=== PATIENT | male | born 1965 | race Hispanic/Latino ===

== ENCOUNTER → 2024-08-18 | Outpatient (CLI) | payer OTHER ==
--- NOTE | 2024-08-18 22:44 | HMCIMG ---
NM BONE SCAN WHOLE BODY REASON: C61 MALIGNANT NEOPLASM OF PROSTATE. COMPARISON: None TECHNIQUE: Total body bone imaging study was performed with 20 mCi of technetium MDP through intravenous route. FINDINGS: Increased activities are seen in the shoulders, elbows, knees and ankles bilaterally consistent with degenerative changes. No scintigraphic evidence of bone metastases is seen. IMPRESSION: DJD. No scintigraphic evidence of bone metastases is seen
== END | disposition home or self-care (01) ==
LOC: RAH 13:55
PROVIDERS: ATTEND Urology
DX: C61 Malignant neoplasm of prostate (principal); M19.90 Unspecified osteoarthritis, unspecified site
CPT/HCPCS: 78306; A9503